=== PATIENT | female | born 1990 ===

== ENCOUNTER → 2020-06-08 11:10 | Outpatient (BNVA) | payer OTHER, SELFPAY | PROVIDERS: PCP Nurse Practitioner Family; Visit Provider Advanced Practice Midwife | DX: Z76.89 Persons encountering health services in other specified circumstances (principal) ==

== ENCOUNTER 2020-07-18 14:56 | Outpatient (REF) | payer OTHER, SELFPAY ==
[2020-07-19 09:57] LABS: BV Int Neg Control Negative (Negative); BV Int Pos Control Positive (Positive)
[2020-07-19 13:32] LABS: C. trachomatis RNA TMA NOT DETECTED (NOT DETECTED); N. gonorrhoeae RNA TMA NOT DETECTED (NOT DETECTED)
[2020-07-22 04:03] LABS: HPV 16 RNA NOT DETECTED (NOT DETECTED); HPV mRNA E6/E7 rflx Detected (Not Detected)
== END 2020-07-18 14:57 | disposition home or self-care (01) ==
LOC: HO.LAB 14:56
PROVIDERS: PCP Nurse Practitioner Family; Visit Provider Advanced Practice Midwife
DX: Z01.419 Encounter for gynecological examination (general) (routine) without abnormal findings (principal); R87.619 Unspecified abnormal cytological findings in specimens from cervix uteri; N89.8 Other specified noninflammatory disorders of vagina; F17.200 Nicotine dependence, unspecified, uncomplicated; Z79.899 Other long term (current) drug therapy; Z11.3 Encounter for screening for infections with a predominantly sexual mode of transmission
CPT/HCPCS: 36415; 87480; 87491; 87510; 87591; 87624; 87625; 87660; 88141; 88142

== ENCOUNTER 2020-08-16 13:55 | Outpatient (REF) | payer OTHER, SELFPAY | END 2020-08-16 13:56 | disposition home or self-care (01) | LOC: HO.LAB 13:55 | PROVIDERS: PCP Nurse Practitioner Family; Visit Provider Obstetrics & Gynecology | DX: R87.610 Atypical squamous cells of undetermined significance on cytologic smear of cervix (ASC-US) (principal); R87.810 Cervical high risk human papillomavirus (HPV) DNA test positive; F17.200 Nicotine dependence, unspecified, uncomplicated; Z32.02 Encounter for pregnancy test, result negative | CPT/HCPCS: 57454; 81025; 88305; 88342; 88360 ==

== ENCOUNTER 2020-08-21 17:33 | Emergency (ER) | payer OTHER, SELFPAY ==
[2020-08-21] VITALS (8 sets, daily range): BP systolic 109–134; BP diastolic 69–81; PULSE 75–94; RESP 18; TEMP 36.8–37.2; O2SAT 99–100; BMI 25.0
--- NOTE | ~2020-08-21 | CT_ITS ---
EXAMINATION: CT ABDOMEN AND PELVIS WITH CONTRAST CLINICAL INFORMATION: pelvic pain s/p colposcopy 2 days ago COMPARISON: CT dated 04/30/2019 TECHNIQUE: Multidetector volumetric images were obtained from the superior aspect of the liver through the pubic symphysis following administration 85 mL of Omnipaque 350 intravenous contrast. Sagittal and coronal reformatted images were obtained on the technologist's workstation. Oral contrast: No This CT examination was performed using dose optimization techniques as appropriate, variously including the following: *Automated exposure control *Adjustment of mA and/or kV according to patient size (this includes techniques or standardized protocols for targeted exams where dose is matched to indication/reason for exam; i.e. extremities or head) *Use of iterative reconstruction technique DLP: 494 mGy-cm FINDINGS: LUNG BASES: The visualized lung bases are unremarkable. There is patulous gaseous distention of the distal esophagus. LIVER, GALLBLADDER, AND BILIARY TREE: The liver is normal in size, shape, and attenuation. Within hepatic segment 4A/B, there is a 2.5 cm focus of hypoenhancement which is relatively subtle and was likely present on prior unenhanced studies, most likely corresponding to aberrant venous inflow or focal fatty infiltration. No biliary ductal dilatation is present. The gallbladder is unremarkable with no evidence of radiopaque gallstones, gallbladder wall thickening, or obvious pericholecystic inflammatory changes. PANCREAS: Unremarkable. SPLEEN: Unremarkable. ADRENAL GLANDS: Unremarkable. KIDNEYS AND URETERS: The kidneys are normal in size, shape, and attenuation. No hydronephrosis, hydroureter, or calculi seen. No perinephric stranding. BLADDER: The bladder wall thickening is likely due to underdistention. No intraluminal abnormalities. GASTROINTESTINAL TRACT: As noted above, there is gaseous distention of the distal esophagus, consistent with the history of achalasia. There is a small 2 cm diverticulum at the gastric fundus. A small duodenal diverticulum measures 1.3 cm it is second and third portions of the duodenum adjacent to the pancreatic head. Small bowel and colon are normal in caliber. No bowel wall thickening. Appendix is normal. Small volume of interest no free fluid is present in the deep pelvis ABDOMINAL WALL: No significant hernia is appreciated. LYMPH NODES: Normal. VASCULAR: There is a dilated left gonadal vein with dilated bilateral periuterine veins abdominal aorta and mesenteric vasculature patent. No evidence of thrombosis. IVC is unremarkable. PELVIC VISCERA: The uterus is identified and normal in size. As noted above, there are dilated periuterine veins in addition to increased retrograde blood flow into the uterine myometrium near the fundus. There is mild periuterine fat stranding. At the left adnexa, there is a small peripherally enhancing focus intracranially margins measuring 2.3 cm in diameter, likely a corpus luteum/involuting follicle. Hemorrhagic follicles also possible. No right adnexal lesions are identified. OSSEOUS STRUCTURES: No acute osseous findings. CT/CT abdomen pelvis w con IMPRESSION: 1. Dilated left gonadal vein as well as prominent periuterine veins with significant venous enhancement, suggestive of pelvic congestion syndrome provided the appropriate clinical history. 2. Small peripherally enhancing cystic focus at the left ovary likely corresponds to a corpus luteum cyst or involuting follicle. A hemorrhagic follicle is also on the differential. 3. Small volume of intraperitoneal free fluid. 4. Mild periuterine fat stranding is of uncertain etiology. This may correlate with the pelvic congestion syndrome or recent colposcopy. Recommend correlation with the underlying cause for recent colposcopy. Superimposed infection is on the differential, though there are no specific findings of pelvic inflammatory disease at the adnexa. 5. Patulous distal esophagus consistent with known history of achalasia.
[2020-08-21 19:58] LABS: MANUAL DIFF FLAG NO
[2020-08-21 20:06] LABS: Basophils Percent Auto 0.6 % (0-2); Eosinophils Absolute Auto 0.2 X10*3/uL (0.0-0.4); Eosinophils Percent Auto 3.4 % (0-4); Hemoglobin 13.4 g/dl (12.0-16.0); Imm Gran Abs Auto 0.01 X10*3/uL (0.00-0.03); Imm Gran Pct Auto 0.2 % (0.0-0.4); Lymphocytes Absolute Auto 2.3 X10*3/uL (1.2-4.9); Mean Corpuscular HGB Conc 32.7 g/dl (31.0-35.0); Mean Corpuscular Volume 85.8 fL (80-98); Mean Platelet Volume 9.8 fL (9.4-12.3); Monocytes Absolute Auto 0.4 X10*3/uL (0.1-1.2); Monocytes Percent Auto 6.1 % (2-11); Neutrophils Absolute Auto 3.4 X10*3/uL (2.0-8.3); Neutrophils Percent Auto 53.7 % (45-73); Platelet Count 199 X10*3/uL (160-400); Red Blood Count 4.78 X10*6/uL (4.20-5.50); Red Cell Distribution Width 12.7 % (11.0-16.0); White Blood Count 6.4 X10*3/uL (4.8-10.8)
[2020-08-21 20:43] LABS: Alanine Aminotransferase 18 U/L (0-31); Albumin Level 4.4 g/dL (3.5-5.0); Alkaline Phosphatase 46 U/L (39-117); Anion Gap 11 (12-20); Aspartate Amino Transferase 19 U/L (5-31); Bilirubin Total 0.5 mg/dL (0.0-1.0); Blood Urea Nitrogen 4 mg/dL (9-16); Carbon Dioxide 26 mmol/L (22-29); Chloride 105 mmol/L (96-108); Estimated Glomerular Filt Rate > 60; Glucose Random 89 mg/dL (60-115); Potassium 4.2 mmol/L (3.3-5.1); Sodium 138 mmol/L (135-145); Total Protein 7.1 g/dL (6.5-8.0)
[2020-08-21 21:05] LABS: Glucose Urine UA NEG (NEG); Leukocyte Esterase Urine 1+ (NEG); Nitrite Urine NEG (NEG); PH 7.5 (5.0-8.0); Specific Gravity - Urine 1.015 (1.005-1.025); UACC Culture Trigger YES; Urine Blood TRACE (NEG); Urine Ketones NEG (NEG); Urine Protein NEG (NEG-TRACE)
[2020-08-21 21:09] LABS: Appearance Urine HAZY; Color Urine YELLOW
[2020-08-21] MEDS: 0.9 % Sodium Chloride 1,000 ML 999 ML IVCONT (21:09)
[2020-08-21] MEDS: ondansetron HCL 4 MG/2 ML VIAL IVPUSH (21:09)
[2020-08-21] MEDS: Morphine Sulfate 4 MG/ML CARTRIDGE IVPUSH ×2 (21:09→23:59)
[2020-08-21 21:15] LABS: Bacteria Urine TRACE /LPF; RBC Urine 0-2 /HPF (0); Squamous Epithelial Cell Urine 3+ /LPF
--- NOTE | 2020-08-21 21:31 | ED_ITS ---
HPI - Abdominal Pain General Chief Complaint: Abdominal Pain Stated Complaint: pelvic pain Source: patient Mode of arrival: ambulatory Limitations: no limitations History of Present Illness HPI narrative: 29-year-old female with past medical history of anxiety, was seen by Dr Mckeon for colposcopy on 08/17/2019, presents with 10/10 pelvic pain, vaginal discharge, and chills. She denies chest pain or pressure, palpitations, shortness of breath, abdominal distention, hematuria, edema, diarrhea or constipation. MD elicited complaint: abdominal pain Pertinent past history: other (Colposcopy) Location: suprapubic Severity: severe Pain scale (0-10): 10 Quality: cramping and aching Exacerbating factors: movement Relieving factors: nothing Context: recent surgery/procedure Associated symptoms: fever, chills and dysuria Related Data Home Medications Medication Instructions Recorded Confirmed alprazolam 0.5 mg tablet 0.5 mg PO BEDTIME 06/08/20 07/18/20 cholecalciferol (vitamin D3) 125 1 PO DAILY 06/08/20 07/18/20 mcg (5,000 unit) capsule dextroamphetamine 15 mg 15 mg PO BID 06/08/20 07/18/20 capsule,extended release diazepam 2 mg tablet 2 mg PO DAILY 06/08/20 07/18/20 famotidine 40 mg tablet 40 mg PO DAILY 06/08/20 07/18/20 fluticasone propionate 50 INTRANASAL 06/08/20 07/18/20 mcg/actuation nasal spray,suspension gabapentin 400 mg capsule 400 mg PO BID 06/08/20 07/18/20 lamotrigine 200 mg tablet 200 mg PO BID 06/08/20 07/18/20 loratadine 10 mg tablet 10 mg PO DAILY 06/08/20 07/18/20 vortioxetine 10 mg tablet 10 mg PO DAILY 06/08/20 07/18/20 Previous Rx's Medication Instructions Recorded norethindrone (contraceptive) 0.35 0.35 mg PO DAILY #28 tab 07/18/20 mg tablet doxycycline hyclate 100 mg PO BID 14 Days #28 tab 08/22/20 fluconazole [Diflucan] 150 mg PO Q3D #2 tab 08/22/20 ibuprofen 600 mg PO Q6H PRN #60 tab 08/22/20 metronidazole [Flagyl] 500 mg PO Q12H 14 Days #28 tab 08/22/20 ondansetron HCl [Zofran] 4 mg PO Q8H 20 Days #60 tab 08/22/20 oxycodone 5 mg PO Q8H PRN #5 tab 08/22/20 Allergies Allergy/AdvReac Type Severity Reaction Status Date / Time levofloxacin [From LEVAQUIN] Allergy Unknown ITCHING, Verified 08/16/20 14:19 itchy ibuprofen [IBUPROFEN] AdvReac Unknown SWALLOWING Verified 08/16/20 14:19 DIFFICULTY, stomach upset Review of Systems Review of Systems Constitutional: Positive subjective Fever, No Chills ENT/Mouth: No sore throat, No Rhinorrhea Eyes: No Eye Pain, No Redness Cardiovascular: No Chest Pain, No SOB Respiratory: No Cough, No Sputum, No Wheezing Gastrointestinal: positive Nausea, No Vomiting, No Diarrhea, positive abdominal pain, Genitourinary: positive irregular bleeding, positive Dysuria, No Urinary Frequency, positive pelvic pain, positive vaginal discharge Musculoskeletal: No Myalgias Skin: No rash Neuro: No Weakness, No Headache Psych: No Anxiety/Panic, No Depression Heme/Lymph: No bruising, No Lymphadenopathy Endocrine: No Polyuria, No Polydipsia Yes all other systems are reviewed and are negative Physical Exam Vital Signs: Vital Signs: Last Vital Signs Temp 98.9 F 08/21/20 22:17 Pulse 84 08/22/20 00:49 Resp 18 08/22/20 00:49 BP 115/69 08/22/20 00:49 Pulse Ox 99 08/22/20 00:49 Body Mass Index 25.0 Appearance: Alert. Oriented X3. Moderate emotional distress. Eyes: Pupils equal, round and reactive to light. ENT: Pharynx normal. Neck: Normal inspection. Neck supple. CVS: Normal heart rate and rhythm. Pulses normal. Respiratory: No respiratory distress. Breath sounds normal. Abdomen: Soft and significant suprapubic tenderness to minimal palpation. Skin: Skin warm and dry. Normal skin color. Normal skin turgor. Extremities: No lower extremity edema. Moves all extremities against resistance, gait well balanced well coordinated Neuro: No motor deficit. No sensory deficit. Cranial nerves 2-12 intact, no focal neural deficit : External Female Exam: normal external appearance Speculum Exam - Vagina: normal appearance of the vagina and abnormal vaginal discharge white (Copious) Speculum Exam - Cervix: normal appearance of the cervix and Cervical tenderness present Bimanual exam- vagina & uterus: Cervical tenderness present Bimanual Exam- Adnexa, other: normal adnexae Course Course Course Narrative: 29-year-old female 2 days status post colposcopy presents with 10/10 suprapubic and pelvic pain with copious vaginal discharge and intermittent subjective fevers and chills. Will order CT scan of pelvis and abdomen with contrast, CBC, Chem 7, lactic acid, cultures. Will reach out to OBGYN. CT scan shows possibility for pelvic inflammatory disease secondary to procedure versus endometritis. Findings discussed with Dr. Mckeon, plan to treat with p.o. antibiotics, analgesic, not really request pelvic exam with cultures, which were completed. Patient does not meet sepsis criteria, lactic acid is 0.8, CBC and Chem 7 are normal. Will discharge home with plan to arrive by OB. Patient verbalized understanding of and agrees plan of care discharge home Consultations Consultation #1: Mike Time: 23:00 MDM - Abdominal Pain MDM Narrative Medical decision making narrative: Pelvic inflammatory disease, UTI, endometritis Differential Diagnosis Differential diagnosis: Likely abdominal pain, acute appendicitis, endometriosis and ovarian cyst Medical Records Attestation: I reviewed the patient's medical records. Lab Data Attestation: I reviewed the patient's lab results. Result diagrams: 08/21/20 19:50 08/21/20 19:50 Labs: Lab Results 08/21/20 08/21/20 08/21/20 Range/Units 19:50 19:50 19:50 WBC 6.4 (4.8-10.8) X10*3/uL RBC 4.78 (4.20-5.50) X10*6/uL Hgb 13.4 (12.0-16.0) g/dl Hct 41.0 (37-47) % MCV 85.8 (80-98) fL MCH 28.0 (27.0-33.0) pg MCHC 32.7 (31.0-35.0) g/dl RDW 12.7 (11.0-16.0) % Plt Count 199 (160-400) X10*3/uL MPV 9.8 (9.4-12.3) fL Immature Gran % (Auto) 0.2 (0.0-0.4) % Neut % (Auto) 53.7 (45-73) % Lymph % (Auto) 36.0 (20-40) % Schleicher % (Auto) 6.1 (2-11) % Eos % (Auto) 3.4 (0-4) % Baso % (Auto) 0.6 (0-2) % Lymph # (Auto) 2.3 (1.2-4.9) X10*3/uL Schleicher # (Auto) 0.4 (0.1-1.2) X10*3/uL Eos # (Auto) 0.2 (0.0-0.4) X10*3/uL Baso # (Auto) 0.0 (0.0-0.2) X10*3/uL Abs Immat Gran (auto) 0.01 (0.00-0.03) X10*3/uL Absolute Neuts (auto) 3.4 (2.0-8.3) X10*3/uL Absolute Nucleated RBC 0.000 (0.0-0.012) X10*3/uL Nucleated RBC % (auto) 0.0 (0.0-0.2) /100WBC Hold Blue Top SEE NOTE Sodium 138 (135-145) mmol/L Potassium 4.2 (3.3-5.1) mmol/L Chloride 105 (96-108) mmol/L Carbon Dioxide 26 (22-29) mmol/L Anion Gap 11 L (12-20) BUN 4 L (9-16) mg/dL Creatinine 0.80 (0.5-1.4) mg/dL Estim Creat Clear Calc 99.0 Estimated GFR > 60 Random Glucose 89 (60-115) mg/dL Lactic Acid (0.5-2.0) mmol/L Calcium 9.0 (8.4-10.2) mg/dL Total Bilirubin 0.5 (0.0-1.0) mg/dL AST 19 (5-31) U/L ALT 18 (0-31) U/L Alkaline Phosphatase 46 (39-117) U/L Total Protein 7.1 (6.5-8.0) g/dL Albumin 4.4 (3.5-5.0) g/dL Urine Color Urine Appearance Urine pH (5.0-8.0) Ur Specific Benoit (1.005-1.025) Urine Protein (NEG-TRACE) MG/DL Urine Glucose (UA) (NEG) MG/DL Urine Ketones (NEG) MG/DL Urine Blood (NEG) Urine Nitrite (NEG) Ur Leukocyte Esterase (NEG) Urine RBC (0) /HPF Urine WBC (0-4) /HPF Ur Squamous Epith Cells /LPF Urine Bacteria /LPF 08/21/20 08/21/20 Range/Units 20:51 21:04 WBC (4.8-10.8) X10*3/uL RBC (4.20-5.50) X10*6/uL Hgb (12.0-16.0) g/dl Hct (37-47) % MCV (80-98) fL MCH (27.0-33.0) pg MCHC (31.0-35.0) g/dl RDW (11.0-16.0) % Plt Count (160-400) X10*3/uL MPV (9.4-12.3) fL Immature Gran % (Auto) (0.0-0.4) % Neut % (Auto) (45-73) % Lymph % (Auto) (20-40) % Schleicher % (Auto) (2-11) % Eos % (Auto) (0-4) % Baso % (Auto) (0-2) % Lymph # (Auto) (1.2-4.9) X10*3/uL Schleicher # (Auto) (0.1-1.2) X10*3/uL Eos # (Auto) (0.0-0.4) X10*3/uL Baso # (Auto) (0.0-0.2) X10*3/uL Abs Immat Gran (auto) (0.00-0.03) X10*3/uL Absolute Neuts (auto) (2.0-8.3) X10*3/uL Absolute Nucleated RBC (0.0-0.012) X10*3/uL Nucleated RBC % (auto) (0.0-0.2) /100WBC Hold Blue Top Sodium (135-145) mmol/L Potassium (3.3-5.1) mmol/L Chloride (96-108) mmol/L Carbon Dioxide (22-29) mmol/L Anion Gap (12-20) BUN (9-16) mg/dL Creatinine (0.5-1.4) mg/dL Estim Creat Clear Calc Estimated GFR Random Glucose (60-115) mg/dL Lactic Acid 0.8 (0.5-2.0) mmol/L Calcium (8.4-10.2) mg/dL Total Bilirubin (0.0-1.0) mg/dL AST (5-31) U/L ALT (0-31) U/L Alkaline Phosphatase (39-117) U/L Total Protein (6.5-8.0) g/dL Albumin (3.5-5.0) g/dL Urine Color YELLOW Urine Appearance HAZY Urine pH 7.5 (5.0-8.0) Ur Specific Benoit 1.015 (1.005-1.025) Urine Protein NEG (NEG-TRACE) MG/DL Urine Glucose (UA) NEG (NEG) MG/DL Urine Ketones NEG (NEG) MG/DL Urine Blood TRACE (NEG) Urine Nitrite NEG (NEG) Ur Leukocyte Esterase 1+ H (NEG) Urine RBC 0-2 (0) /HPF Urine WBC 1-4 (0-4) /HPF Ur Squamous Epith Cells 3+ /LPF Urine Bacteria TRACE /LPF Imaging Data CT abdomen pelvis: Attestation: I personally reviewed and interpreted this imaging study as follows: Radiologist's impression: EXAMINATION: CT ABDOMEN AND PELVIS WITH CONTRAST CLINICAL INFORMATION: pelvic pain s/p colposcopy 2 days ago COMPARISON: CT dated 04/30/2019 TECHNIQUE: Multidetector volumetric images were obtained from the superior aspect of the liver through the pubic symphysis following administration 85 mL of Omnipaque 350 intravenous contrast. Sagittal and coronal reformatted images were obtained on the technologist's workstation. Oral contrast: No This CT examination was performed using dose optimization techniques as appropriate, variously including the following: *Automated exposure control *Adjustment of mA and/or kV according to patient size (this includes techniques or standardized protocols for targeted exams where dose is matched to indication/reason for exam; i.e. extremities or head) *Use of iterative reconstruction technique DLP: 494 mGy-cm FINDINGS: LUNG BASES: The visualized lung bases are unremarkable. There is patulous gaseous distention of the distal esophagus. LIVER, GALLBLADDER, AND BILIARY TREE: The liver is normal in size, shape, and attenuation. Within hepatic segment 4A/B, there is a 2.5 cm focus of hypoenhancement which is relatively subtle and was likely present on prior unenhanced studies, most likely corresponding to aberrant venous inflow or focal fatty infiltration. No biliary ductal dilatation is present. The gallbladder is unremarkable with no evidence of radiopaque gallstones, gallbladder wall thickening, or obvious pericholecystic inflammatory changes. PANCREAS: Unremarkable. SPLEEN: Unremarkable. ADRENAL GLANDS: Unremarkable. KIDNEYS AND URETERS: The kidneys are normal in size, shape, and attenuation. No hydronephrosis, hydroureter, or calculi seen. No perinephric stranding. BLADDER: The bladder wall thickening is likely due to underdistention. No intraluminal abnormalities. GASTROINTESTINAL TRACT: As noted above, there is gaseous distention of the distal esophagus, consistent with the history of achalasia. There is a small 2 cm diverticulum at the gastric fundus. A small duodenal diverticulum measures 1.3 cm it is second and third portions of the duodenum adjacent to the pancreatic head. Small bowel and colon are normal in caliber. No bowel wall thickening. Appendix is normal. Small volume of interest no free fluid is present in the deep pelvis ABDOMINAL WALL: No significant hernia is appreciated. LYMPH NODES: Normal. VASCULAR: There is a dilated left gonadal vein with dilated bilateral periuterine veins abdominal aorta and mesenteric vasculature patent. No evidence of thrombosis. IVC is unremarkable. PELVIC VISCERA: The uterus is identified and normal in size. As noted above, there are dilated periuterine veins in addition to increased retrograde blood flow into the uterine myometrium near the fundus. There is mild periuterine fat stranding. At the left adnexa, there is a small peripherally enhancing focus intracranially margins measuring 2.3 cm in diameter, likely a corpus luteum/involuting follicle. Hemorrhagic follicles also possible. No right adnexal lesions are identified. OSSEOUS STRUCTURES: No acute osseous findings. CT/CT abdomen pelvis w con IMPRESSION: 1. Dilated left gonadal vein as well as prominent periuterine veins with significant venous enhancement, suggestive of pelvic congestion syndrome provided the appropriate clinical history. 2. Small peripherally enhancing cystic focus at the left ovary likely corresponds to a corpus luteum cyst or involuting follicle. A hemorrhagic follicle is also on the differential. 3. Small volume of intraperitoneal free fluid. 4. Mild periuterine fat stranding is of uncertain etiology. This may correlate with the pelvic congestion syndrome or recent colposcopy. Recommend correlation with the underlying cause for recent colposcopy. Superimposed infection is on the differential, though there are no specific findings of pelvic inflammatory disease at the adnexa. 5. Patulous distal esophagus consistent with known history of achalasia. Discharge Plan Discharge Clinical Impression: Endometritis, Acute pelvic inflammatory disease after procedure in female, Candidiasis Patient Disposition: Home, Self-Care Instructions: Endometriosis (ED), Pelvic Inflammatory Disease (ED), Yeast Infection (ED) Additional Instructions: You were evaluated for pelvic pain and vaginal discharge after a colposcopy procedure. CT scan of the abdomen and pelvis shows Mild periuterine fat stranding is of uncertain etiology. This may correlate with the pelvic congestion syndrome or recent colposcopy. Recommend correlation with the underlying cause for recent colposcopy. Superimposed infection is on the dif ferential, though there are no specific findings of pelvic inflammatory disease at the adnexa. I did discuss your case with your OBGYN Dr Mckeon. He wants me to treat you with antibiotics to cover for suspected pelvic inflammatory disease related to procedure verses endometritis versus candidiasis. Please call him tomorrow, he is expecting your call. I prescribed a few tablets of oxycodone for pain management. This medication is a narcotic and has high risk for addiction and abuse. Do not drive or operate machinery while taking this medication. This medication may delay reaction time, increased risk for drowsiness, increased risk for falls, and cause constipation. Use MiraLax and or Colace to help soften stools. Please take doxycycline twice a day as directed. Please take Flagyl twice a day as directed. Complete the entire course of these medications. Use Zofran as needed for nausea. Take Diflucan once her antibiotics are completed. This is for a yeast infection. We treated you with 1 dose in the emergency department. If you have fevers, chills, chest pain or pressure, palpitations, or any other concerning symptoms please return to the emergency department immediately. Thank you for choosing this emergency department for evaluation. Please follow-up with primary care physician as needed. Return to the emergency department for any new, concerning, or worsening symptoms. Prescriptions: New metronidazole [Flagyl] 500 mg tablet 500 mg PO Q12H 14 Days Qty: 28 RF: 0 doxycycline hyclate 100 mg tablet 100 mg PO BID 14 Days Qty: 28 RF: 0 fluconazole [Diflucan] 150 mg tablet 150 mg PO Q3D Qty: 2 RF: 0 ondansetron HCl [Zofran] 4 mg tablet 4 mg PO Q8H 20 Days Qty: 60 RF: 0 ibuprofen 600 mg tablet 600 mg PO Q6H PRN (Reason: fever or pain) Qty: 60 RF: 0 oxycodone 5 mg tablet 5 mg PO Q8H PRN (Reason: pain) Qty: 5 RF: 0 No Action cholecalciferol (vitamin D3) 125 mcg (5,000 unit) capsule 1 PO DAILY RF: 0 fluticasone propionate 50 mcg/actuation spray,suspension intranasal RF: 0 diazepam 2 mg tablet 2 mg PO DAILY RF: 0 gabapentin 400 mg capsule 400 mg PO BID RF: 0 alprazolam 0.5 mg tablet 0.5 mg PO BEDTIME RF: 0 loratadine 10 mg tablet 10 mg PO DAILY RF: 0 Trintellix 10 mg tablet 10 mg PO DAILY RF: 0 dextroamphetamine 15 mg capsule, extended release 15 mg PO BID RF: 0 lamotrigine 200 mg tablet 200 mg PO BID RF: 0 famotidine 40 mg tablet 40 mg PO DAILY RF: 0 norethindrone (contraceptive) [Cindy] 0.35 mg tablet 0.35 mg PO DAILY Qty: 28 RF: 11 Referrals: Zoran Mckeon MD [Physician] - 2 days (Call tomorrow for an appointment) [facility] Past Medical History Attestation statement: The following information was validated with the patient. Source: old records reviewed Medical History Achalasia ADHD Asthma Bipolar 1 disorder Depression Esophageal dilatation GERD (gastroesophageal reflux disease) Migraine with aura Seasonal allergies Surgical History Hx of adenoidectomy Hx of endoscopy Hx of tonsillectomy Hx of tubal ligation Family History Family History Mother Hypothyroid Endometriosis HTN (hypertension) Maternal Grandmother Ovarian cancer Social History Social History Alcohol intake: never Smoking Status: Current every day smoker Packs Per Day: 0.5 Smoked in Last 30 Days: Yes Use of substances other than those prescribed or required for medical reasons: No Advance Directives: No Advance Directives Information Provided: No Gender identity: female
[2020-08-21 21:33] LABS: Lactic Acid 0.8 mmol/L (0.5-2.0)
--- NOTE | 2020-08-21 23:35 | PM.GYNCN ---
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 - Review of Systems Review of Systems ROS Unobtainable: All systems reviewed & are unremarkable except as noted in HPI and below Cardiovascular: Denies Palpatations, Loss of consciousness and Chest pain Respiratory: Denies Cough, Wheezing and Shortness of breath Musculoskeletal: Denies Low back pain Gastrointestinal: Denies Heartburn, Constipation, Diarrhea, Nausea and Vomiting Genitourinary: Denies Pain with urination, Burning with urination and Urinary frequency Neurological: Denies Migranes Psychological: Denies Depression OB PMFSH Past Medical History Medical History Achalasia ADHD Asthma Bipolar 1 disorder Depression Esophageal dilatation GERD (gastroesophageal reflux disease) Migraine with aura Seasonal allergies Family History Family History Mother Hypothyroid Endometriosis HTN (hypertension) Maternal Grandmother Ovarian cancer Surgical History Surgical History Hx of adenoidectomy Hx of endoscopy Hx of tonsillectomy Hx of tubal ligation Social History Social History Alcohol intake: never Smoking Status: Current every day smoker Packs Per Day: 0.5 Smoked in Last 30 Days: Yes Use of substances other than those prescribed or required for medical reasons: No Advance Directives: No Advance Directives Information Provided: No Gender identity: female Meds Allergies Allergy/AdvReac Type Severity Reaction Status Date / Time levofloxacin [From LEVAQUIN] Allergy Unknown ITCHING, Verified 08/16/20 14:19 itchy ibuprofen [IBUPROFEN] AdvReac Unknown SWALLOWING Verified 08/16/20 14:19 DIFFICULTY, stomach upset Active Medications: Current Medications Generic Name Dose Route Start Last Admin Trade Name Jaydon PRN Reason Stop Dose Admin Sodium Chloride 1,000 mls @ 999 mls/hr 08/21/20 23:45 Ns IVCONT 08/22/20 00:45 .Q1H1M JEFFERY Home Medications Medication Instructions Recorded Confirmed Last Taken Type alprazolam 0.5 mg tablet 0.5 mg PO BEDTIME 06/08/20 07/18/20 Unknown History cholecalciferol (vitamin D3) 125 1 PO DAILY 06/08/20 07/18/20 Unknown History mcg (5,000 unit) capsule dextroamphetamine 15 mg 15 mg PO BID 06/08/20 07/18/20 Unknown History capsule,extended release diazepam 2 mg tablet 2 mg PO DAILY 06/08/20 07/18/20 Unknown History famotidine 40 mg tablet 40 mg PO DAILY 06/08/20 07/18/20 Unknown History fluticasone propionate 50 INTRANASAL 06/08/20 07/18/20 Unknown History mcg/actuation nasal spray,suspension gabapentin 400 mg capsule 400 mg PO BID 06/08/20 07/18/20 Unknown History lamotrigine 200 mg tablet 200 mg PO BID 06/08/20 07/18/20 Unknown History loratadine 10 mg tablet 10 mg PO DAILY 06/08/20 07/18/20 Unknown History vortioxetine 10 mg tablet 10 mg PO DAILY 06/08/20 07/18/20 Unknown History 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 Physical Exam Vitals Vital signs: Temp Pulse Resp BP Pulse Ox 98.9 F 88 18 109/72 100 08/21/20 22:17 08/21/20 22:17 08/21/20 22:17 08/21/20 22:17 08/21/20 22:17 Body Mass Index 25.0 Additional Comments: Exam done by Zara Fajardo showed suprapubic tenderness 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 - Results Labs CBC & Chem 7: 08/21/20 19:50 08/21/20 19:50 Labs: Short CBC 08/21/20 Range/Units 19:50 WBC 6.4 (4.8-10.8) X10*3/uL Hgb 13.4 (12.0-16.0) g/dl Hct 41.0 (37-47) % Plt Count 199 (160-400) X10*3/uL BMP 08/21/20 19:50 Sodium 138 Potassium 4.2 Chloride 105 Carbon Dioxide 26 BUN 4 L Creatinine 0.80 Calcium 9.0 Liver Function 08/21/20 Range/Units 19:50 Total Bilirubin 0.5 (0.0-1.0) mg/dL AST 19 (5-31) U/L ALT 18 (0-31) U/L Alkaline Phosphatase 46 (39-117) U/L Albumin 4.4 (3.5-5.0) g/dL Urine 08/21/20 Range/Units 20:51 Urine Color YELLOW Urine Appearance HAZY Urine pH 7.5 (5.0-8.0) Ur Specific [place] 1.015 (1.005-1.025) Urine Protein NEG (NEG-TRACE) MG/DL Urine Glucose (UA) NEG (NEG) MG/DL Assessment and Plan (1) Endometritis: Status: Acute Discussed treatment with Zara Fajardo NP . I recommended pelvic exam, cervical cultures, urine culture, and bacterial vaginosis panel. Ceftriaxone 250 mg IM and discharged on doxycycline 100 mg p.o. b.i.d. and Flagyl 500 mg p.o. b.i.d. for 14 days.. Instructions to give to the patient to call if fever occurs, nausea and vomiting, severe abdominal pain, not tolerating p.o. antibiotics and to follow up in the office in the coming 24-48 hours.
[2020-08-22] VITALS: PULSE 98; RESP 121; O2SAT 100
[2020-08-22] MEDS: cefTRIAXone sodium 500 MG, Lidocaine HCl 1 % MPF 1 ML IM
[2020-08-22] MEDS: metroNIDAZOLE 500 MG TABLET PO
[2020-08-22] MEDS: 0.9 % Sodium Chloride 1,000 ML 999 ML IVCONT (00:02)
[2020-08-22 00:37] VITALS: BP 129/88; PULSE 113; RESP 18; O2SAT 99
[2020-08-22] MEDS: diphenhydrAMINE HCL 50 MG/ML VIAL 25 MG IVPUSH (00:39)
[2020-08-22] MEDS: Metoclopramide HCl 10 MG/2 ML VIAL IVPUSH (00:39)
[2020-08-22] MEDS: LORazepam 2 MG/ML VIAL 1 MG IVPUSH (00:39)
--- NOTE | 2020-08-22 00:45 | PC.NURSE ---
pt upset crying pt states she is tired, hungry and nervouse for the pelvic exam due to she had one in the past and it was painful for her. provider is aware and medications have been ordered and given along with education on what is the plan of care with the pt.
[2020-08-22 00:49] VITALS: BP 115/69; PULSE 84; RESP 18; O2SAT 99
[2020-08-22] MEDS: Fluconazole 150 MG TABLET PO (01:29)
[2020-08-22 01:32] VITALS: BP 97/55; PULSE 84; RESP 18; O2SAT 100
[2020-08-22 03:23] VITALS: BP 98/66; PULSE 75; RESP 18; O2SAT 100
[2020-08-22 03:27] VITALS: BP 103/62; PULSE 81; RESP 18; O2SAT 100
[2020-08-22 03:32] LABS: CT PCR NOT DETECTED (Not Detect.); NG PCR NOT DETECTED (Not Detect.)
[2020-08-22 09:06] LABS: BV Int Neg Control Negative (Negative); BV Int Pos Control Positive (Positive)
== END 2020-08-22 03:35 | disposition home or self-care (01) ==
PROVIDERS: Nurse Practitioner Family; Emergency Provider Student in an Organized Health Care Education/Training Program; PCP Nurse Practitioner Family
DX: R10.2 Pelvic and perineal pain (principal)
CPT/HCPCS: 36415; 74177; 80053; 81001; 81003; 83605; 85025; 87040; 87086; 87480; 87491; 87510; 87591; 87660; 96361; 96365; 96366; 96375; 96376; 99283; 99285; J0696; J1200; J2060; J2270; J2405; J2765; Q9967

== ENCOUNTER → 2020-08-24 09:21 | Outpatient (BNVA) | payer OTHER, SELFPAY | PROVIDERS: PCP Nurse Practitioner Family; Visit Provider Obstetrics & Gynecology | DX: N71.9 Inflammatory disease of uterus, unspecified (principal); N87.1 Moderate cervical dysplasia | CPT/HCPCS: 99212 ==

== ENCOUNTER → 2020-08-30 14:59 | Outpatient (BNVA) | payer OTHER, SELFPAY | PROVIDERS: PCP Nurse Practitioner Family; Visit Provider Obstetrics & Gynecology ==

== ENCOUNTER 2020-09-07 11:07 | Outpatient (REF) | payer OTHER, SELFPAY ==
[2020-09-08 11:56] LABS: BV Int Neg Control Negative (Negative); BV Int Pos Control Positive (Positive)
== END 2020-09-07 11:08 | disposition home or self-care (01) ==
LOC: HO.LAB 11:07
PROVIDERS: PCP Nurse Practitioner Family; Visit Provider Obstetrics & Gynecology
DX: Z01.818 Encounter for other preprocedural examination (principal); N87.1 Moderate cervical dysplasia
CPT/HCPCS: 87480; 87510; 87660; 99212

== ENCOUNTER 2020-09-15 09:11 | Day surgery (SDC) | payer OTHER, SELFPAY ==
[2020-09-11 11:33] VITALS: BMI 25.3
[2020-09-11 13:28] VITALS: BMI 25.0
--- NOTE | 2020-09-14 08:44 | HO.ANESPROP2 ---
Documented by User: Aby Donnelly 09/14/20 08:45 HPI - Anesthesia Eval Consult details Narrative: 29yo F for Cone LEEP PMFSH Active Problems Active Problems: All Active Problems (Updated 09/11/20 @ 13:21 by Patricia Story) Surveillance for control, oral contraceptives (Acute) Well woman exam with routine gynecological exam (Acute) Smoking (Acute) ASCUS with positive high risk HPV (Acute) Endometritis (Acute) OPAL II (cervical intraepithelial neoplasia II) (Acute) Past Medical History Medical History Achalasia ADHD Asthma Bipolar 1 disorder Depression Esophageal dilatation GERD (gastroesophageal reflux disease) Migraine with aura Seasonal allergies Family History Family History Mother Hypothyroid Endometriosis HTN (hypertension) Maternal Grandmother Ovarian cancer Surgical History Surgical History History of esophagogastroduodenoscopy (EGD) Hx of endoscopy Hx of tonsillectomy Hx of tubal ligation Social History Social History Alcohol intake: never Smoking Status: Current every day smoker Packs Per Day: 0.5 Cigarettes Per Day: 10 Use of substances other than those prescribed or required for medical reasons: No Advance Directives: No Advance Directives Information Provided: No Advance Directives on File: No Gender identity: female Meds Allergies Allergy/AdvReac Type Severity Reaction Status Date / Time ibuprofen [IBUPROFEN] Allergy Severe Anaphylaxis Verified 09/11/20 13:23 levofloxacin [From LEVAQUIN] Allergy Intermediate ITCHING, Verified 09/11/20 13:23 itchy Home Medications Medication Instructions Recorded Confirmed Last Taken Type alprazolam 0.5 mg tablet 0.5 mg PO BEDTIME 06/08/20 09/11/20 Unknown History cholecalciferol (vitamin D3) 125 5,000 unit PO DAILY 06/08/20 09/11/20 Unknown History mcg (5,000 unit) capsule dextroamphetamine 15 mg 15 mg PO BID 06/08/20 09/11/20 Unknown History capsule,extended release diazepam 2 mg tablet 2 mg PO DAILY PRN 06/08/20 09/11/20 Unknown History famotidine 40 mg tablet 40 mg PO DAILY PRN 06/08/20 09/11/20 Unknown History fluticasone propionate 50 1 spray INTRANASAL DAILY PRN 06/08/20 09/11/20 Unknown History mcg/actuation nasal spray,suspension gabapentin 400 mg capsule 400 mg PO BID 06/08/20 09/11/20 Unknown History lamotrigine 200 mg tablet 200 mg PO BID 06/08/20 09/11/20 Unknown History loratadine 10 mg tablet 10 mg PO DAILY 06/08/20 09/11/20 Unknown History vortioxetine 10 mg tablet 10 mg PO DAILY 06/08/20 09/11/20 Unknown History ondansetron HCl [Zofran] 4 mg PO Q8H PRN 09/11/20 09/11/20 Unknown History Exam Exam Date and Time: September 14, 2020 0844 Height,Weight and Vital Signs: Height 5 ft 7 in Weight 72.575 kg Assessment and Plan Assessment Anesthesia Assessment: Chart Reviewed Documented by User: Alana Hughes 09/15/20 10:39 [facility] Past Medical History Medical History Achalasia ADHD Asthma Bipolar 1 disorder Depression Esophageal dilatation GERD (gastroesophageal reflux disease) Migraine with aura Seasonal allergies Family History Family History Mother Hypothyroid Endometriosis HTN (hypertension) Maternal Grandmother Ovarian cancer Surgical History Surgical History History of esophagogastroduodenoscopy (EGD) Hx of endoscopy Hx of tonsillectomy Hx of tubal ligation Social History Social History Alcohol intake: never Smoking Status: Current every day smoker Packs Per Day: 0.5 Cigarettes Per Day: 10 Use of substances other than those prescribed or required for medical reasons: No Advance Directives: No Advance Directives Information Provided: No Advance Directives on File: No Gender identity: female Meds Allergies Allergy/AdvReac Type Severity Reaction Status Date / Time ibuprofen [IBUPROFEN] Allergy Severe Anaphylaxis Verified 09/11/20 13:23 levofloxacin [From LEVAQUIN] Allergy Intermediate ITCHING, Verified 09/11/20 13:23 itchy Home Medications Medication Instructions Recorded Confirmed Last Taken Type alprazolam 0.5 mg tablet 0.5 mg PO BEDTIME 06/08/20 09/11/20 Unknown History cholecalciferol (vitamin D3) 125 5,000 unit PO DAILY 06/08/20 09/11/20 Unknown History mcg (5,000 unit) capsule dextroamphetamine 15 mg 15 mg PO BID 06/08/20 09/11/20 Unknown History capsule,extended release diazepam 2 mg tablet 2 mg PO DAILY PRN 06/08/20 09/11/20 Unknown History famotidine 40 mg tablet 40 mg PO DAILY PRN 06/08/20 09/11/20 Unknown History fluticasone propionate 50 1 spray INTRANASAL DAILY PRN 06/08/20 09/11/20 Unknown History mcg/actuation nasal spray,suspension gabapentin 400 mg capsule 400 mg PO BID 06/08/20 09/11/20 Unknown History lamotrigine 200 mg tablet 200 mg PO BID 06/08/20 09/11/20 Unknown History loratadine 10 mg tablet 10 mg PO DAILY 06/08/20 09/11/20 Unknown History vortioxetine 10 mg tablet 10 mg PO DAILY 06/08/20 09/11/20 Unknown History ondansetron HCl [Zofran] 4 mg PO Q8H PRN 09/11/20 09/11/20 Unknown History Exam Airway Mallampati Class: II TM Dist: >3cm Neck ROM: Full Assessment and Plan Assessment Anesthesia Assessment: Anesthesia Plan Discussed and Chart Reviewed Final Anesthetic Review NPO: Yes ASA Class: II Final Preanesthetic Review: No Changes in Pt Med Stat, Meds/Allgs Chart Reviewed, Consent Obtained/Reviewed and Anes Risks/Benef Reviewed Patient Risk: Low Procedure Risk: Low Assessment/Block/Sedation in SS: Assess/Block/Sedation-SS Anesthetic Plan Anesthetic Plan: MAC: Disposition: Standard PACU
[2020-09-15] VITALS (8 sets, daily range): BP systolic 93–108; BP diastolic 43–61; PULSE 67–89; RESP 16–18; TEMP 36.6–36.8; O2SAT 96–100
[2020-09-15] MEDS: Lactated Ringers 1,000 ML 100 ML IVCONT (09:34)
--- NOTE | 2020-09-15 10:23 | MHC.SHP ---
Pre-Procedural Eval Section A The patient is an INPATIENT: No Changes since office visit: No Cold of Flu in the past 2 weeks, No New Medical Problems, No Changes in Medication and No Patient answered all questions The History & Physical has been completed within 30 days and I have reviewed it.: Yes Section B Chief Complaint: C1N2 Allergies: Allergies Allergy/AdvReac Type Severity Reaction Status Date / Time ibuprofen [IBUPROFEN] Allergy Severe Anaphylaxis Verified 09/11/20 13:23 levofloxacin [From LEVAQUIN] Allergy Intermediate ITCHING, Verified 09/11/20 13:23 itchy Plan Diagnosis/Plan: Unchanged I have reviewed the history and physical and performed a pertinent physical examination on my patient. No changes have occurred unless specified.
[2020-09-15 10:36] LABS: UPreg QC Valid YES; Urine Pregnancy NEGATIVE (NEGATIVE)
--- NOTE | 2020-09-15 11:41 | PM.OP ---
Brief Operative Note Date of Service: 05/19/20 Pre-op diagnosis: OPAL 2 Post-op diagnosis: same Procedure: LEEP CONE with post CONE ECC Surgeon: Zoran Mckeon MD Anesthesia: local and other (Paracervical block) Estimated blood loss (mL): 0 Pathology: other (Ant+post Cerv lip, Endocx, Post cone ECC) Condition: stable Disposition: other (Home)
--- NOTE | 2020-09-15 11:42 | W.PM.OPN ---
Operative Note Operative Note Date of Service: 05/19/20 Narrative: Preop diagnosis: OPAL 2 Operation: LEEP Cone with post cone ECC Post op diagnosis: same Anesthesia: paracervical block Complications: none Pathology: Anterior and Posterior cervical lip with endocervix & post cone RCC QBL: minimal Procedure: The patient was put in the dorsal lithotomy position, was prepped and draped in the usual sterile fashion. A sterile speculum was inserted inside the patient vagina. Using Lugol solution the cervix with Dyed with Lugol solution to identifiy the abnormal demarcating line. 10 cc of Marcaine0.5% with epinephrine were given at 2,4 , 8, and 10 o'clock. Using a large-size loop wire, a cervical cone was excised followed by excision of a portion of the anterior cervical lip followed by the endocervix, post cone ECC was done afterwards. Hemostasis was assured using cautery and Monsel solution. All instruments were taken out of the patient's vaginal cavity. the patient tolerated the procedure well and was discharged home with the following instructions: call if temperature is above 100.4, vaginal bleeding, abdominal pain or nausea or vomiting. Follow-up in the office in 2 weeks for postop visit
[2020-09-15] MEDS: Acetaminophen 325 MG TABLET 650 MG PO (12:17)
[2020-09-15] MEDS: ondansetron HCL 4 MG/2 ML VIAL IVPUSH (12:17)
[2020-09-15] MEDS: oxyCODONE HCl Immed Release 5 MG TABLET PO (12:18)
== END 2020-09-15 14:10 ==
LOC: HO.SSS 09:11
PROVIDERS: PCP Nurse Practitioner Family; Visit Provider Obstetrics & Gynecology
PROC: 0UBC7ZZ Excision of Cervix, Via Natural or Artificial Opening (ICD-10-PCS; CPT 57522; principal; 2020-09-15 10:40)
DX: N87.1 Moderate cervical dysplasia (principal)
CPT/HCPCS: 57522; 81025; 88305; 88307; J1885; J2250; J2405; J3010

== ENCOUNTER → 2020-09-28 14:40 | Outpatient (BNVA) | payer OTHER, SELFPAY | PROVIDERS: PCP Nurse Practitioner Family; Visit Provider Obstetrics & Gynecology ==

== ENCOUNTER 2021-07-20 15:17 | Outpatient (REF) | payer OTHER, SELFPAY ==
[2021-07-20 17:56] LABS: Syphilis Screen Nonreactive (Nonreactive)
[2021-07-21 14:25] LABS: BV Int Neg Control Negative (Negative); BV Int Pos Control Positive (Positive)
[2021-07-21 18:31] LABS: CT PCR NOT DETECTED (Not Detect.); NG PCR NOT DETECTED (Not Detect.)
[2021-07-23 04:22] LABS: HBc Num1 0.07 S/CO (0.00-0.79); HIV AB/AG Nonreactive (Nonreactive); HIV Num 1 0.16 S/CO (0.00-0.99); Hepatitis B Core Antibody Nonreactive (Nonreactive)
[2021-07-23 05:15] LABS: ~HepC Num1 0.17 S/CO (0.00-0.79); ~Hepatitis C Antibody Nonreactive (Nonreactive)
[2021-07-25 09:32] LABS: HPV mRNA E6/E7 rflx Not Detected (Not Detected)
== END 2021-07-20 15:18 | disposition home or self-care (01) ==
LOC: HO.LAB 15:17
PROVIDERS: PCP Nurse Practitioner Family; Visit Provider Advanced Practice Midwife
DX: Z01.419 Encounter for gynecological examination (general) (routine) without abnormal findings (principal); Z11.51 Encounter for screening for human papillomavirus (HPV); Z11.3 Encounter for screening for infections with a predominantly sexual mode of transmission; N87.1 Moderate cervical dysplasia; R10.2 Pelvic and perineal pain; Z20.2 Contact with and (suspected) exposure to infections with a predominantly sexual mode of transmission; Z98.51 Tubal ligation status
CPT/HCPCS: 36415; 86704; 86780; 86803; 87389; 87480; 87491; 87510; 87591; 87624; 87660; 88142

== ENCOUNTER 2022-07-30 08:56 | Outpatient (REF) | payer OTHER, SELFPAY ==
[2022-07-30 15:43] LABS: MANUAL DIFF FLAG NO
[2022-07-30 16:09] LABS: Basophils Percent Auto 0.6 % (0-2); Eosinophils Absolute Auto 0.1 X10*3/uL (0.0-0.4); Eosinophils Percent Auto 1.9 % (0-4); Hematocrit 37.6 % (37.0-47.0); Hemoglobin 12.5 g/dl (12.0-16.0); Imm Gran Abs Auto 0.02 X10*3/uL (0.00-0.03); Imm Gran Pct Auto 0.3 % (0.0-0.4); Lymphocytes Absolute Auto 1.9 X10*3/uL (1.2-4.9); Lymphocytes Percent Auto 30.8 % (20-40); Mean Corpuscular HGB Conc 33.2 g/dl (31.0-35.0); Mean Corpuscular Hemoglobin 28.7 pg (27.0-33.0); Mean Corpuscular Volume 86.4 fL (80.0-98.0); Mean Platelet Volume 10.5 fL (9.4-12.3); Monocytes Absolute Auto 0.4 X10*3/uL (0.1-1.2); Monocytes Percent Auto 6.1 % (2-11); Neutrophils Absolute Auto 3.8 x10*3/uL (2.0-8.3); Neutrophils Percent Auto 60.3 % (45-73); Platelet Count 247 X10*3/uL (160-400); Red Blood Count 4.35 X10*6/uL (4.20-5.50); Red Cell Distribution Width 13.1 % (11.0-16.0); White Blood Count 6.2 X10*3/uL (4.8-10.8)
[2022-07-30 17:05] LABS: Thyroid Stimulating Hormone 1.06 uIU/mL (0.32-4.0)
[2022-07-30 18:21] LABS: CT PCR NOT DETECTED (Not Detect.); NG PCR NOT DETECTED (Not Detect.)
[2022-07-31 06:35] LABS: Syphilis Screen Nonreactive (Nonreactive)
[2022-07-31 07:32] LABS: HIV AB/AG Nonreactive (Nonreactive); Hepatitis B Core Antibody Nonreactive (Nonreactive); ~HepC Num1 0.11 S/CO (0.00-0.79); ~Hepatitis C Antibody Nonreactive (Nonreactive)
[2022-07-31 12:51] LABS: BV Int Neg Control Negative (Negative); BV Int Pos Control Positive (Positive)
== END 2022-07-30 08:57 | disposition home or self-care (01) ==
LOC: HO.LAB 08:56
PROVIDERS: PCP Nurse Practitioner Family; Visit Provider Advanced Practice Midwife
DX: Z11.3 Encounter for screening for infections with a predominantly sexual mode of transmission (principal); Z11.4 Encounter for screening for human immunodeficiency virus [HIV]; N92.0 Excessive and frequent menstruation with regular cycle; Z20.2 Contact with and (suspected) exposure to infections with a predominantly sexual mode of transmission; N89.8 Other specified noninflammatory disorders of vagina
CPT/HCPCS: 0353U; 84443; 85025; 86704; 86780; 86803; 87389; 87480; 87510; 87660

== ENCOUNTER 2022-07-30 09:21 | Outpatient (REF) | payer OTHER, SELFPAY ==
[2022-08-03 06:43] LABS: HPV mRNA E6/E7 rflx Not Detected (Not Detected)
== END 2022-07-30 09:22 | disposition home or self-care (01) ==
LOC: HO.LNP 09:21
PROVIDERS: Visit Provider Advanced Practice Midwife
DX: Z01.419 Encounter for gynecological examination (general) (routine) without abnormal findings (principal); Z11.51 Encounter for screening for human papillomavirus (HPV)
CPT/HCPCS: 87624; 88142

== ENCOUNTER 2023-02-01 18:43 | Emergency (ER) | payer OTHER, SELFPAY ==
[2023-02-01 18:57] VITALS: BP 111/66; PULSE 96; RESP 18; TEMP 37.1; O2SAT 100; BMI 23.5
--- NOTE | 2023-02-01 18:57 | ED.URI ---
HPI - URI/Sore Throat General Chief Complaint: Upper Respiratory Symptoms Stated Complaint: covid symptoms Time Seen by Provider: 02/01/23 18:59 Source: patient Mode of arrival: ambulatory Limitations: no limitations History of Present Illness HPI Narrative: Patient is a 32-year-old female who presents to the emergency department for evaluation of upper respiratory symptoms. Symptom onset was yesterday morning. She reports being on a business trip earlier this week and was exposed to somebody who has tested positive for COVID-19. Currently she is experiencing symptoms including headache, sore throat, stuffy nose, fatigue. Denies SOB, chest pain, dizziness. Related Data Home Medications Medication Instructions Recorded Confirmed alprazolam 0.5 mg tablet 0.5 mg PO BEDTIME 06/08/20 09/11/20 cholecalciferol (vitamin D3) 125 5,000 unit PO DAILY 06/08/20 09/11/20 mcg (5,000 unit) capsule dextroamphetamine sulfate 15 mg 15 mg PO BID 06/08/20 09/11/20 capsule,extended release diazepam 2 mg tablet 2 mg PO DAILY PRN Anxiety 06/08/20 09/11/20 famotidine 40 mg tablet 40 mg PO DAILY PRN Gastric Reflux 06/08/20 09/11/20 fluticasone propionate 50 1 spray intranasal DAILY PRN 06/08/20 09/11/20 mcg/actuation nasal Allergy Symptoms spray,suspension lamotrigine 200 mg tablet 200 mg PO BID 06/08/20 09/11/20 loratadine 10 mg tablet 10 mg PO DAILY 06/08/20 09/11/20 vortioxetine 10 mg tablet 10 mg PO DAILY 06/08/20 09/11/20 zolpidem 10 mg tablet 10 mg PO BEDTIME PRN 07/20/21 Previous Rx's Medication Instructions Recorded fluconazole 150 mg tablet 150 mg PO DAILY 1 dose #1 tab 07/31/22 (Diflucan) Allergies Allergy/AdvReac Type Severity Reaction Status Date / Time ibuprofen [IBUPROFEN] Allergy Severe Anaphylaxis Verified 02/01/23 19:00 levofloxacin [From LEVAQUIN] Allergy Intermediate ITCHING, Verified 02/01/23 19:00 itchy Review of Systems Review of Systems: Constitutional: No fever. No chills. No weakness. Positive fatigue. ENT/ Mouth: No Ear Pain, positive Nasal Congestion, positive sore throat, positive Rhinorrhea, No Swallowing Difficulty Skin: No rash or itching. Cardiovascular: No chest pain. No palpitations. Respiratory: No shortness of breath. Positive cough. No sputum production. Gastrointestinal: No nausea. No vomiting. No diarrhea. No abdominal pain. Genitourinary: No burning micturition. No urinary frequency. Neurologic: No headache. No dizziness. No syncope. No numbness or tingling in the extremities. Musculoskeletal: No muscle pain. No back pain. No joint pain or stiffness. Yes all other systems are reviewed and are negative REPLACED BY [facility] Past Medical History Attestation statement: The following information was validated with the patient. Source: old records reviewed Medical History Abnormal Pap smear of cervix Achalasia ADHD Asthma Bipolar 1 disorder Depression Esophageal dilatation GERD (gastroesophageal reflux disease) Migraine with aura Seasonal allergies Surgical History History of esophagogastroduodenoscopy (EGD) History of loop electrical excision procedure (LEEP) Hx of endoscopy Hx of tonsillectomy Hx of tubal ligation Family History Family History Mother Hypothyroid Endometriosis HTN (hypertension) Maternal Grandmother Ovarian cancer Social History Social History (Updated 07/30/22 @ 09:03 by EVANGELINA Causey) Alcohol intake: never Patient Tobacco Use Status: Former Tobacco user Gender identity: Female Physical Exam Vital Signs: Vital Signs: Last Vital Signs Temp 98.7 F 02/01/23 18:57 Pulse 96 02/01/23 18:57 Resp 18 02/01/23 18:57 BP 111/66 02/01/23 18:57 Pulse Ox 100 02/01/23 18:57 O2 Del Method Room Air 02/01/23 18:57 BMI result Body Mass Index 23.5 Appearance: Alert.?Oriented to person, place and time. No acute distress.?Normal affect. Eyes: Pupils equal, round and reactive to light.? ENT: TM normal bilaterally. Pharynx normal.?? Neck: Normal inspection.? Neck supple.??No cervical adenopathy CVS: Heart sounds normal. Normal heart rate and rhythm.? Pulses normal.?? Respiratory: No respiratory distress.? Lung sounds clear to auscultation bilaterally?? Abdomen: Soft and non-tender. Normoactive bowel sounds. Skin: Skin warm and dry.? Normal skin color.? ? Extremities: No lower extremity edema.? Neuro: Moves all extremities spontaneously. Sensation intact bilaterally. No motor deficits. Ambulates with normal steady gait. Medical Decision Making Medical Decision Making MDM Narrative: Patient is a 32 old female presenting for evaluation of upper respiratory symptoms.? COVID-19 testing is positive.?At this time history and physical exam not consistent with ACS/PE/pneumonia.? Well-appearing, nontoxic, afebrile, no tachycardia or tachypnea/hypoxia.? Speaking clear full sentences, ambulatory with steady gait.? Discussed conservative treatment including rest, hydration, Tylenol/ibuprofen as needed for fever and body aches, saline nasal spray, humidifier, [id number] cold medication.? Advised to follow-up with primary care provider as needed, discussed reasons to return back to the emergency department.? All questions were answered.? Patient discharged home in stable condition.? Provided with a return to work/school note. Differential Diagnosis Differential Diagnoses: The differential diagnosis associated with the presentation includes (As noted above) Lab Data MDM Lab Attestation statement: I reviewed the patient's lab results. (As noted above) Labs: Lab Results 02/01/23 Range/Units 19:04 COVID-19 ([place]) Positive A (Negative) COVID-19 Clin Com See Note External Record Review External record reviewed: Outpatient record Tests considered The following testing was considered but not selected: Consider chest x-ray, after physical examination was suspicion for pneumonia, XR imaging was deferred Prescription Management I considered prescription management with: Antiviral (Reviewed indications and usage of Paxlovid, shared decision making, deferred) Discharge Plan Discharge Clinical Impression: COVID-19 Patient Disposition: Home, Self-Care Instructions: COVID-19 (Coronavirus Disease 2019) (ED) Additional Instructions: According to the CDC you can end isolation and return to work or school on 02/05/2023, with strict mask wearing for an additional 5 days; coordinate with your employer for any additional restrictions that they may require. Return back to emergency department any new or worsening symptoms or concerns. Follow-up with your primary care provider as needed for persistent symptoms. Be sure to rest, stay well hydrated drinking plenty of fluids, eat small frequent meals. Tylenol/ibuprofen can be used as needed for fever/pain. [id number] cold medications may be helpful as well for symptoms. Saline nasal spray, humidifier may be helpful for nasal congestion. Prescriptions: No Action fluconazole [Diflucan] 150 mg tablet 150 mg PO DAILY Qty: 1 0RF Rx Instructions: administer on day 1 of therapy cholecalciferol (vitamin D3) 125 mcg (5,000 unit) capsule 5,000 unit PO DAILY fluticasone propionate 50 mcg/actuation spray,suspension 1 spray intranasal DAILY PRN (Reason: Allergy Symptoms) diazepam 2 mg tablet 2 mg PO DAILY PRN (Reason: Anxiety) alprazolam 0.5 mg tablet 0.5 mg PO BEDTIME loratadine 10 mg tablet 10 mg PO DAILY Trintellix 10 mg tablet 10 mg PO DAILY dextroamphetamine sulfate 15 mg capsule, extended release 15 mg PO BID lamotrigine 200 mg tablet 200 mg PO BID famotidine 40 mg tablet 40 mg PO DAILY PRN (Reason: Gastric Reflux) zolpidem 10 mg tablet 10 mg PO BEDTIME PRN Referrals: Nadine Duffy RESP THERAPIST [Primary Care Provider] - Stand Alone Forms: Work/School Release
[2023-02-01 19:17] LABS: COVID-19 Test Positive (Negative); IDNOW Serial# 08D9AD1C
== END 2023-02-01 20:38 | disposition home or self-care (01) ==
LOC: HO.ED 20:13
PROVIDERS: Nurse Practitioner Family; Emergency Provider Emergency Medicine
DX: U07.1 COVID-19 (principal)
CPT/HCPCS: 87635; 99282

== ENCOUNTER 2023-08-01 09:03 | Outpatient (REF) | payer OTHER, SELFPAY ==
[2023-08-03 03:53] LABS: Syphilis Screen Nonreactive (Nonreactive)
[2023-08-03 03:59] LABS: HIV AB/AG Nonreactive (Nonreactive); ~HepC Num1 0.14 S/CO (0.00-0.79); ~Hepatitis C Antibody Nonreactive (Nonreactive)
[2023-08-03 04:33] LABS: HBc Num1 0.12 S/CO (0.00-0.79); Hepatitis B Core Antibody Nonreactive (Nonreactive)
== END 2023-08-01 09:04 | disposition home or self-care (01) ==
LOC: HO.LAB 09:03
PROVIDERS: Visit Provider Advanced Practice Midwife
DX: Z01.419 Encounter for gynecological examination (general) (routine) without abnormal findings (principal); Z11.4 Encounter for screening for human immunodeficiency virus [HIV]; Z20.2 Contact with and (suspected) exposure to infections with a predominantly sexual mode of transmission
CPT/HCPCS: 36415; 86704; 86780; 86803; 87389; 99395

== ENCOUNTER 2023-08-01 09:03 | Outpatient (AMB) | payer OTHER, SELFPAY ==
--- NOTE | 2023-08-01 09:14 | MHC.OFFVIS ---
Intake Vital Signs 08/01/23 09:16 Height 5 ft 7 in Weight 153 lb BMI 24.0 BP 118/66 Intake Visit Reasons: Annual Intake Note: Wants STD screen [employer] Required: No Information Interpreted: non-clinical & clinical Customer Account Executive: Customer Account Executive Present (Keena Anthony HUTCHINSON) Accompanied by: Self / Same As Patient Allergies ibuprofen [IBUPROFEN] Allergy (Severe, Verified 08/01/23 09:19) Anaphylaxis levofloxacin [From LEVAQUIN] Allergy (Intermediate, Verified 08/01/23 09:19) ITCHING, itchy Is last menstrual period known: Yes Last menstrual period: 07/15/23 HPI HPI Comments History of Present Illness Details She is a premenopausal woman presenting for annual examination. Doing well with concerns: Currently is sexually active, last 2 wks ago. Not using condoms. Admits to vaginal discharge and odor. STI screening offered; she accepts. She tries to eat healthy and stays active with exercise. Regular monthly menses. Had a tubal ligation. Denies family history of breast, ovarian or colon cancer. Last pap smear 2022, negative. PFS Medical History Abnormal Pap smear of cervix Migraine with aura Esophageal dilatation Achalasia GERD (gastroesophageal reflux disease) ADHD Depression Bipolar 1 disorder Asthma Seasonal allergies Surgical History History of loop electrical excision procedure (LEEP) History of esophagogastroduodenoscopy (EGD) Hx of tubal ligation Hx of endoscopy Hx of tonsillectomy Family History Mother Hypothyroid Endometriosis HTN (hypertension) Maternal Grandmother Ovarian cancer Social History Household Members: Children Housing: Apartment Alcohol intake: current Alcohol intake frequency: holidays/special occasions only Patient Tobacco Use Status: Former Tobacco user Current occupational status: employed 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 Sexually active: Yes Sexual orientation: Straight/Heterosexual Gender identity: Female Female Reproductive History Menstrual Age of Menarche: 10 Date of last menstrual period: 07/15/23 control method: permanent sterilization Total pregnancies: 4 Full term: 3 Number of Living Children: 3 Date of last pap smear: 07/31/22 Review of Systems Const All systems reviewed & are unremarkable except as noted in HPI and below Reports as per HPI Eyes Reports no additional complaints ENT Reports no additional complaints Card Reports no additional complaints Resp Reports no additional complaints GI Reports as per HPI and Reports no additional complaints Reports as per HPI Musc Reports no additional complaints Skin/Breast Reports as per HPI Neuro Reports no additional complaints Psych Reports no additional complaints Endo Reports no additional complaints Meño/Lymph Reports no additional complaints Aller/Immun Reports no additional complaints Physical Exam Vital Signs: Last Vital Signs BP 118/66 08/01/23 09:16 BMI result Body Mass Index 24.0 Const General: cooperative, healthy appearing, no acute distress, well developed and alert Orientation/consciousness: patient oriented x3 HEENT Head: Yes normal to inspection Eyes General: appearance normal, both eyes and all related structures Neck Neck: Yes normal visual inspection Thyroid: Thyroid normal Chest Chest palpation & inspection: normal inspection of the chest and other (no puckering, dimpling, peau de orange, retraction, discharge, masses) Breast/axilla inspection: normal inspection of the breasts Breast/axilla palpation: normal palpation of the breasts Resp Effort & Inspection: normal respiratory effort GI Inspection: Yes normal to inspection Palpation (GI): Soft to palpation Rectal Exam - Female: deferred General: Yes bladder normal to palpation External Female Exam: normal external appearance and normal appearance of the urethra Speculum Exam - Vagina: normal appearance of the vagina, normal palpation and normal vaginal discharge Speculum Exam - Cervix: normal appearance of the cervix, normal palpation and Other cervical findings present (Post LEEP appearance) Bimanual exam- vagina & uterus: normal bimanual exam, normal palpation, uterine size normal, bladder normal to palpation, normal palpation and non-tender Bimanual Exam- Adnexa, other: no masses Skin General skin exam: no rashes or lesions noted Rashes: no rashes Neuro General: patient oriented x3 Cognition (Neuro): normal cognition Extrem General: Yes normal to inspection Psych Attitude: cooperative Thought process: Normal thought process present Assessment & Plan Assessment & Plan (1) Well woman exam with routine gynecological exam: Code(s): Z01.419 - Encounter for gynecological examination (general) (routine) without abnormal findings (2) Possible exposure to STD: Code(s): Z20.2 - Contact with and (suspected) exposure to infections with a predominantly sexual mode of transmission Plan Discussed: Current recommendations for pap smears per ASCCP guidelines. Breast awareness and periodic breast exams. Maintain a healthy lifestyle including a well balanced diet and routine exercise. Use condoms for STI and prevention. Patient verbalizes understanding and agrees to the plan of care. She was given opportunity to ask questions and all questions were answered to the best of my ability. RTO in one year for annual nurse gynecology examination. This note is constructed using voice recognition software. While every effort has been made to ensure accuracy, commercial teller errors may have been included. Orders: Orders HIV Ab/Ag Today Z20.2 - Contact with and (suspected) exposure to infections with a predominantly sexual mode of transmission Hepatitis C Antibody Reflex Today Z20.2 - Contact with and (suspected) exposure to infections with a predominantly sexual mode of transmission Hepatitis B Core Antibody Today Z20.2 - Contact with and (suspected) exposure to infections with a predominantly sexual mode of transmission Syphilis Screen Today Z20.2 - Contact with and (suspected) exposure to infections with a predominantly sexual mode of transmission Coding Level of Care Code Est Pt Prev Care [id number]([id number]) Diagnoses Well woman exam with routine gynecological exam Z01.419 Possible exposure to STD Z20.2
[2023-08-01 09:16] VITALS: BP 118/66; BMI 24.0
== END 2023-08-01 09:53 | disposition home or self-care (01) ==
LOC: HO.HWS 09:03
PROVIDERS: Visit Provider Advanced Practice Midwife
DX: Z01.419 Encounter for gynecological examination (general) (routine) without abnormal findings (principal); Z20.2 Contact with and (suspected) exposure to infections with a predominantly sexual mode of transmission
CPT/HCPCS: 99395

== ENCOUNTER 2023-08-01 10:12 | Outpatient (REF) | payer OTHER, SELFPAY ==
[2023-08-01 16:54] LABS: CT PCR NOT DETECTED (Not Detect.); NG PCR NOT DETECTED (Not Detect.)
[2023-08-02 14:44] LABS: BV Int Neg Control Negative (Negative); BV Int Pos Control Positive (Positive)
== END 2023-08-01 10:13 | disposition home or self-care (01) ==
LOC: HO.LNP 10:12
PROVIDERS: Visit Provider Advanced Practice Midwife
DX: Z20.2 Contact with and (suspected) exposure to infections with a predominantly sexual mode of transmission (principal)
CPT/HCPCS: 0353U; 87480; 87510; 87660